=== PATIENT | female | born 1950 | race Caucasian/White ===

== ENCOUNTER 2018-04-14 21:28 | Emergency (ER) | payer MEDICARE ==
[~2018-04-14] VITALS: Ht 160 cm; Wt 77.1 kg
[2018-04-14 22:00] VITALS: BP 142/69
[2018-04-14] MEDS ORDERED: PRED-220 PO (22:10)
[2018-04-14] MEDS ORDERED: SULF1TAB24 PO (22:10)
--- NOTE | 2018-04-14 22:10 | PHYS DOC ---
Adult General Chief Complaint Chief Complaint: SKIN RASH/ABSCESS HPI HPI Patient is a 67 year old female presents to the ED complaining of rash 1 week. She sits outside on the front porch and plays with the dog has not been out in the [place]. States the rash is on her hands, trunk, and lower extremities. States the rash is very itchy. States she has taken a Benadryl at home before arrival but nothing in the previous week. Denies fever, nausea/vomiting, chest pain, shortness of breath, conjunctivitis, sore throat, cough, weakness, dizziness or headache. Review of Systems Review of Systems Constitutional: Denies fever or chills [] Eyes: Denies change in visual acuity, redness, or eye pain [] HENT: Denies nasal congestion or sore throat [] Respiratory: Denies cough or shortness of breath [] Cardiovascular: No additional information not addressed in HPI [] GI: Denies abdominal pain, nausea, vomiting, bloody stools or diarrhea [] : Denies dysuria or hematuria [] Musculoskeletal: Denies back pain or joint pain [] Integument: Complains of rash. Denies skin lesions [] Neurologic: Denies headache, focal weakness or sensory changes [] All other systems were reviewed and found to be within normal limits, except as documented in this note. Current Medications Current Medications Current Medications Medications (Trade) Dose Ordered Sig/Mindy Start Time Stop Time Status Last Admin Dose Admin Methylprednisolone Sodium Succinate (SOLU-Medrol 125MG VIAL) 125 mg 1X ONCE 04/14/18 22:15 04/14/18 22:18 DC 04/14/18 22:14 125 MG Allergies Allergies Allergies Coded Allergies Type Severity Reaction Last Updated Verified No Known Drug Allergies 04/14/18 No Physical Exam Physical Exam Constitutional: Well developed, well nourished, no acute distress, non-toxic appearance. [] HENT: Normocephalic, atraumatic Neck: Normal range of motion, no tenderness, supple, no stridor. [] Cardiovascular:Heart rate regular rhythm, no murmur [] Lungs & Thorax: Bilateral breath sounds clear to auscultation [] Skin: Warm, dry. erythematous macular rash to UE, LE and TRUNK with excoriations from itching. no drainage. Back: No tenderness, no CVA tenderness. [] Extremities: No tenderness, no cyanosis, no clubbing, ROM intact, no edema. [] Neurologic: Alert and oriented X 3, normal motor function, normal sensory function, no focal deficits noted. [] Psychologic: Affect normal, judgement normal, mood normal. [] Current Patient Data Vital Signs Vital Signs Date Time Temp Pulse Resp B/P (MAP) Pulse Ox O2 Delivery O2 Flow Rate FiO2 04/14/18 22:00 98.6 77 16 142/69 (93) 97 Room Air 98.6 EKG EKG [] Radiology/Procedures Radiology/Procedures [] Course & Med Decision Making Course & Med Decision Making Pertinent Labs and Imaging studies reviewed. (See chart for details) []Patient treated with Solu-Medrol in the ED. Will discharge with short course of prednisone and antibiotics to prevent secondary infection outpatient. Discussed symptomatic treatment and [id number] medications. Discussed follow-up with PCP this coming week. Provided contact information/education. Discussed reasons to return to the ED. Patient understands and agrees with plan. Family at bedside. Attending physician attestation: I was working at the time of this patient's ER visit and was available for consultation, but did not personally interview, examine, or directly take part in the patient's care. DO Regan Weir Disclaimer Dragpa[employer] Disclaimer This electronic medical record was generated, in whole or in part, using a voice recognition dictation system. Departure Departure Impression: Primary Impression: Rash Disposition: 01 HOME, SELF-CARE Condition: IMPROVED Referrals: NO PCP (PCP) REESE KEATING MD Patient Instructions: Contact Dermatitis, Rash Scripts Sulfamethoxazole/Trimethoprim (BACTRIM DS TABLET) 1 Each Tablet 1 TAB PO BID for 10 Days, #20 TAB Prov: ROSALIND RAINEY 04/14/18 Prednisone (PREDNISONE ) 10 Mg Tablet 30 MG PO DAILY for 4 Days, #12 TAB 0 Refills Prov: ROSALIND RAINEY 04/14/18 ROSALIND RAINEY Apr 14, 2018 22:10 SONY SALGADO DO Apr 18, 2018 06:19
[2018-04-14] MEDS: methylPREDNISolone SOD SUCC PF 125 MG/2 ML VIAL. IM ONE (22:14)
== END 2018-04-14 22:18 | disposition home or self-care (01) ==
LOC: ER 21:28
DX: R21 Rash and other nonspecific skin eruption (principal)
CPT/HCPCS: 96372; 99283; J2930